=== PATIENT | female | born 2000 | race Caucasian/White ===

== ENCOUNTER 2021-02-17 09:00 | Outpatient (RCR) | payer OTHER, MEDICAID, SELFPAY ==
--- NOTE | 2021-02-17 08:56 | BH.SGPN.GN ---
Behaviors/Verbalizations/Mental Status: []Eye contact is poor, often looking down or away. Alert and oriented. Motor activity is appropriate. Appearance is neat casual. grooming is appropriate. Speech unable to assess as client declined to provide input. Mood is anxious and depressed. Affect is congruent. No evidence of psychosis or hallucinations. Reports SI as a 4/5 however baseline unknown as client new to IOP program, intent reported as 2/5. Willing to meet individually to complete [place] Suicide risk assessment and further assess. Client Response/Progress/Benefit: []Pt new to IOP tx on this date. Opted not to share during process group; however, appeared to connect with others throughout. Nodding at various points. Client appearing to benefit from supportive group environment. Recommended ongoing IOP tx to improve self-talk, continue to promote anxiety management, and prevent decompensation. Narrative Note: []
--- NOTE | 2021-02-17 09:00 | BH.COMM_ITS ---
Communication Note - Communication with Client Communication Note: Met with patient to completed intial paperwork. No sig nificant changes since pre-admission screening. Completed [place] Suicide Screening. Last suicidal thought occured 2 days. Has some thoughts of methods. Protective factors. Long-standing fleeting SI and desire to be . Does not present as imminent danger. Protective factors. Future-oriented.
--- NOTE | 2021-02-17 10:10 | BH.SGPN.GN ---
Behaviors/Verbalizations/Mental Status: []Alert and oriented. Eye contact is good. Motor activity is appropriate. Appearance is neat. Speech is Appropriate. Mood is depressed. Affect is constricted. Thoughts are linear and logical. No evidence of psychosis. Client Response/Progress/Benefit: []Pt was an active participant in group discussion and activity although she appeared anxious. Connected with quote.? Attentive during psychoeducation.? Pt worked with group to identify forces that can impact growth and overall mental health. Pt was doing a lot of nodding during the garden metaphor and how different forces work together to get growth. Participated in the activity and did well working as a team.? Pt benefited from increased awareness of the impact positive and negative forces can have on mental health and personal growth. First day of IOP. Will continue IOP tx to prevent decompensation, learn healthy coping skills, and improve daily functioning. Narrative Note: []
--- NOTE | 2021-02-17 11:20 | BH.SGPN.GN ---
Behaviors/Verbalizations/Mental Status: []Client alert and oriented, casually dressed and groomed. Eye contact fair. Motor activity appropriate. Speech WNL. Affect constricted, mood anxious and depressed. Thoughts linear, logical, no signs of hallucinations or delusions. Client Response/Progress/Benefit: []Pt engaged during session AEB pt providing input when elicited by therapist, completed worksheet and listened attentively to peers. Group processed the activity and identified positive and negative forces impacting ability to complete the challenge. Pt was attentive during psychoeducation and appeared to benefit from increased insight on the impact of negative and positive forces on mental wellness. Identified positive forces as: boundaries, journaling, and using support system. Identified negative forces: people pleasing, negative self-talk, negative body image, and unhealthy coping. Identified wanting to focus on communicating to support what she needs. Pt's first day in IOP. Recommended continued IOP tx to increase healthy coping skills, improve self-awareness, and prevent decompensation. Narrative Note: []
--- NOTE | 2021-02-18 10:15 | BH.NA_ITS ---
Physical Data - Vital Signs Pulse Rate: 84 Blood Pressure: 127/83 - Height/Weight Height: 1.63 m Weight:: 58.967 kg Weight in Pounds: 130.0 lbs Current Medication Compliance - Medication Compliance Do you take your medication as prescribed?: Yes Nutritional History - Appetite Nutritional Instructions:: If client shows signs of a swallowing problem, weight change of 10 pounds or more in the last month, or is on a diabetic diet, the physician will review and request a dietitian consult, as appropriate. All unintentional weight loss will be referred to the physician for decision on need for dietitian consult. Have you noticed a change in your eating habits lately?: Yes Additional nutritional information:: Client states she has lost 35lbs in the last year. Client states she has seen a strategic sourcing specialist in the past and is seeing one again for decreased appetite and eating habits. Functional Assessment - Sleep Pattern Describe any problems with sleeping: Client states she has had problems sleeping since being taken off her Trazodone. Client states she sleeps about 5 hours per night. - Activities Motor Activity:: Functional Sensory/Communication Assess - Vision Problems Do you have any vision problems?: Glasses - Communication Problems Do you have difficulty understanding what people are saying?: No Medical Problems/History - Gastrointestinal Conditions Gastrointestinal: Other (See comments) Comments:: history of eosinophilic esophagitits, IBS - Pain Assessment Do you have acute or chronic pain?: No Surgical History - Surgical History Have you had any surgeries? If so, list type and date:: Yes - right hip Substance Abuse - Substance Abuse Please describe substance abuse in the last 30 days:: Client denies alcohol, tobacco or substance use. Client occasionally drinks caffiene. Mental Status Summary - Mental Status Significant Findings/Observations on Appearance and Mood:: Client is alert and oriented x4. Client is casually groomed with good hygiene. Client is wearing a mask due to the pandemic. Client is cooperative. Client makes fair eye contact. Client's voice with normal rate and somewhat soft volume. Client has somewhat flat affect. Client makes logical associations. Client denies delusions/hallucinations. Client has longstanding chronic SI. Suicide Assessment - Suicidal Ideation Are you currently or have you been suicidal in the past?: Yes - chronic daily SI Suicidal Intentional Rating Scale (SIRS): Suicidal thoughts (past) Physician Notification: If Active suicidal thoughts/Will not contract for safety is checked, contact physician and document in the Physician Notification section below. Past Psychiatric History - MH Treatment Hx Past Psychiatric Medications:: Trintellix, Lexapro, Wellbutrin, Trazodone, Prozac, Prasozin Age of first mental health symptoms: Client states she was diagnosed with anxiety and depression when she was around 16 years old. Describe (age, circumstance, etc) any past hospitalizations: Client has had 3 hospitalizations, the most recent in January 2019 for SA by overdose. Current providers for mental health treatment (counselor, psychiatrist, returned case inspector, etc.): [facility]- counseling, case resolution specialist, and highway traffic control technician Fall Risk Assessment - Age Age: Less than 60 - Mental Status Mental Status: Willing & able to ask for assistance when needed - Physical Status Physical Status: No problems - Impairments Impairments: None - Elimination Elimination: Continent AND independent - Gait or Balance Gait or Balance: Walks independently - Hx of Falls History of falls in the past 6 months: No known history - Medications/Substances Psychotropics:: Antidepressants Medications/substances used within the past 24 hours or ordered to administer: 1-2 of the medications/substances listed above - Total Score Total Points:: 1 RN Summary of Impressions - Impressions Recommendations: Include psychiatric and medical issues, treatment planning recommendations, and discharge planning needs. Impressions: Psychiatric Issues: Major depressive disorder, recurrent, severe without psychosis; generalized anxiety disorder; cluster B traits - Level of Care How do the client's current symptoms and functional deficits support need for this level of care?: Client was referred to IOP by outpatient highway traffic control technician for fleeting SI. Client states she has had an increase in depression symptoms and suicidal thoughts and once a week outpatient therapy was not enough. Client endorses decreased energy, decreased motivation, anhedonia, and avoidance. Clien t endorses frequent self-harm by cutting. Client states she last cut 2 days ago but denies any open areas/wounds on skin from cutting. Client has a history of chronic SI, and client states recently it has gotten more severe. No recent suicide attempts or hospitalizations. IOP will promote gains and prevent further decompensation while providing social support and skills training.
--- NOTE | 2021-02-18 11:10 | BH.SGPN.GN ---
Behaviors/Verbalizations/Mental Status: []Client alert and oriented, casually dressed, hygiene appeared to be tended to. Eye contact good. Motor activity appropriate. Speech within normal limits. Affect constricted, mood anxious. Thoughts linear, logical, no signs of hallucinations or delusions. Client Response/Progress/Benefit: []Client engaged participant AEB client providing input during discussions and listened attentively to peers. Participated in group discussion on the various areas of self-care, benefits, and types of self-care activities for each area. Client completed worksheet in which client identified current self-care practices and what self-care activities client wants to start using. Client reported she will focus on improving emotional self-care as client believes this will help client learn healthy coping skills. Client stated she will do this by looking up positive affirmations. Appeared to benefit from reflecting on the area of self-care client can improve and setting a small goal. First week of IOP tx. Will continue IOP tx to prevent decompensation, combat distortions, and improve daily functioning. Narrative Note: []
[2021-02-18 11:27] VITALS: BP 127/83; PULSE 84
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
--- NOTE | 2021-02-18 12:49 | BH.PSY.EVA_ITS ---
Initial Treatment Plan - Patient Information Visit Information: ADMISSION DATE: EXPECTED LOS: 4-6 weeks - Problems/Symptoms Problem #1:: Depression Symptom:: Sadness, crying, hopelessness, worthlessness, suicidal ideation, biol ogical disruption of appetite and sleep, decreased concentration and low energy. Problem #2:: Anxiety Symptom:: Worry, rumination, avoidance
--- NOTE | 2021-02-20 07:35 | BH.MTP ---
Master Treatment Plan - Patient Information Program Physician:: Dr. Karma Wilson Primary Therapist:: Emilee GUAMAN - Psychiatric Diagnoses Psychiatric Diagnoses:: Major depressive disorder, recurrent, severe without psychosis; generalized anxiety disorder; cluster B traits Diagnosis Code(s):: F 33.2 - Estimated LOS Estimated LOS (in weeks):: 6 Problem/Goal #1 - Problem/Goal #1 Stated Goal:: Client will reduce depressive symptoms, self-harm and SI, and worthlessness due major depressive disorder. Description of Barriers: Client has a history of two previous suicide attempts and she reports a history of self-harming behaviors. Client has a limited support system and states knowledge of few healthy coping skills. Client has history of past trauma and negative thought patterns that reinforce depression. Functional Impact: Client is a 20-year-old female with a history of MDD and JUANITA. Client has history of three previous hospitalizations with the most recent being 01/2019. Client was referred to [facility] tx by her outpatient psychiatric nursing assistant due to worsening suicidal ideations and limited benefit from traditional counseling. Client has a long-standing history of SI with thoughts of methods. Denies any current plan or intent. Client endorses poor sleep, poor appetite, low energy, low motivation, hopelessness, anhedonia, rumination, worry, and avoidant behaviors. Client also uses cutting to cope with mental health symptoms and stressors. Client's symptoms have been impacting her ability to function at home, socially, and at school. Goal Relevant Strengths/Supports: Client is established with outpatient services through [facility]. Client appears to be open to learning healthy coping skills and improving her mental health. - Objectives Objective #1 Stated Objective: Client will learn and utilize 2-3 healthy coping strategies to better manage depressive symptoms as shown by reduced DSM-5 scores. Interventions: Through group and individual sessions, therapist will help client identify triggers and warning signs of depression. Therapist will teach client various coping skills to manage her symptoms and give client tangible resources to use to regulate emotions. Therapist will provide psychoeducation on cognitive distortions and maintenance cycles and strategies to break unhealthy maintenance cycles. Discharge Criteria: Client will have met this goal when she can report learning and using at least 2 coping skills to manage depressive symptoms and show a reduction in DSM-5 symptoms. Target Date: 03/31/21 Review Date: 03/17/21 Status: open Objective #2 Stated Objective: Client will identify 2 triggers and 2 coping skills to use when client experiences mood dysregulation and has increased urges to engage in unhealthy coping skills. Interventions: Through individual and group counseling client will be provided with education on healthy coping skills to manage mood symptoms, impulse, and crisis behaviors. Therapist will provide information on healthy alternatives to emotion release. Therapist will also engage client to use self-compassion while working to change behaviors. Discharge Criteria: Client will have accomplished this goal when client can identify at least 2 triggers and 2 coping skills to increase mood stability and reduce unhealthy action urges. Target Date: 03/31/21 Review Date: 03/17/21 Status: open Problem/Goal #2 - Problem/Goal #2 Stated Goal:: Client will reduce anxiety symptoms while increasing ability to function on daily basis. Description of Barriers: Client has a history of two previous suicide attempts and she reports a history of self-harming behaviors. Client has a limited support system and states knowledge of few healthy coping skills. Client has history of past trauma and negative thought patterns that reinforce depression. Functional Impact: Client is a 20-year-old female with a history of MDD and JUANITA. Client has history of three previous hospitalizations with the most recent being 01/2019. Client was referred to [facility] tx by her outpatient psychiatric nursing assistant due to worsening suicidal ideations and limited benefit from traditional counseling. Client has a long-standing history of SI with thoughts of methods. Denies any current plan or intent. Client endorses poor sleep, poor appetite, low energy, low motivation, hopelessness, anhedonia, rumination, worry, and avoidant behaviors. Client also uses cutting to cope with mental health symptoms and stressors. Client's symptoms have been impacting her ability to function at home, socially, and at school. Goal Relevant Strengths/Supports: Client is established with outpatient services through [facility]. Client appears to be open to learning healthy coping skills and improving her mental health. - Objectives Objective #1 Stated Objective: Client will identify 2-3 cognitive distortions that lead to rumination and learn 2-3 ways to manage these thoughts to better manage anxiety Interventions: Therapist will provide education on the most common cognitive distortions and teach client the connection between thoughts, emotions, and feelings. Therapist will assist client in identifying, challenging, and replacing dysfunctional thoughts with positive, more realistic thoughts. Therapist will use CBT and DBT techniques to help client gain awareness of thinking errors and learn how to more effectively handle negative thoughts. Therapist will also use self-compassion to help client set more realistic expectations for herself. Discharge Criteria: Client will have accomplished this goal when can identify at least 2 cognitive distortions and at least 2 coping skills to manage negative thoughts. Target Date: 03/31/21 Review Date: 03/17/21 Status: open Objective #2 Stated Objective: Client will identify 2-3 anxiety triggers and 2 coping skills to use when feeling anxious to manage anxiety as shown by decreasing her avoidance behaviors and DSM-5 scores for anxiety. Interventions: Therapist will provide education on anxiety, avoidance behaviors, and maintenance cycles. Therapist will help client explore personal symptoms and warning signs of anxiety. Therapist will teach client coping skills to improve emotional regulation, mindfulness, and distress tolerance to help client cope with anxiety in the moment. Discharge Criteria: Client will have accomplished this goal when she can identify at least 2 triggers and report using 2 coping skills to manage anxiety. Additionally, client will have accomplished this goal when her avoidance behaviors and DSM-5 scores show a reducion. Target Date: 03/31/21 Review Date: 03/17/21 Status: open
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
--- NOTE | 2021-02-20 09:00 | BH.SGPN.GN ---
Behaviors/Verbalizations/Mental Status: []Client alert and oriented, casually dressed. Eye contact fair. Motor activity appropriate. Speech within normal limits. Affect flat, mood anxious and dysthymic. Thoughts linear, logical, no signs of hallucinations or delusions. Reviewed client?s symptom tracker, client scored herself as a 4-5 for suicidal ideation and a 2-3 for suicide plan or intent. Client will meet with a therapist to assess safety planning. Client Response/Progress/Benefit: []Client responded well to session, engaged throughout and participated in group discussion. Client reported feeling ?hopeless? this morning. Client denied having any specific goals for IOP as of now, but reported her stressor as school and family dysfunction. Client reported her older sister has cancer and has been speaking negative to client. Client stated ?I am never doing enough? and stated attending IOP still does not receive recognition from family. Client shared wanting to develop healthy boundaries with her sister by limiting communication. Benefited from group as client related to peers about their experiences within boundary settings in families.Client shared her positive as being present in IOP. Progress noted as client was vulnerable to discuss personal struggles in group setting. Will continue IOP to promote the use of healthy coping skills, prevent decompensation, and set healthy boundaries with older sister. Narrative Note: []
--- NOTE | 2021-02-20 10:10 | BH.SGPN.GN ---
Behaviors/Verbalizations/Mental Status: []Client alert and oriented, casually dressed and groomed. Eye contact fair to good. Motor activity appropriate. Speech within normal limits. Affect congruent, mood depressed and anxious. Thoughts linear, logical, no signs of hallucinations or delusions. Client Response/Progress/Benefit: []Client was an engaged participant AEB taking notes and contributing to discussion. Connected with group topic of perspective and the impacts of one?s perspective on mental health. Client noted struggling with societal stigma and learned beliefs impacting her perspective of self. Client worked with the group to identify how a negative perspective can impact mental health which included: self-fulfilling prophecy, avoiding or giving up on treatment, not opening up to others, and withdrawing or isolating. Client reported starting to discover that her mental health experiences can make her more empathetic to others struggling with similar issues. Client appeared to benefit from increasing understanding of mental health benefits of a positive perspective and potential consequences to progress when perspective is negative. Progress noted in improved engagement in tx environment. Continues to struggle with combating distortions and suicidal ideation. Client will continue IOP tx to promote gains, maintain safety, improve healthy coping, and prevent decompensation. Narrative Note: []
--- NOTE | 2021-02-20 11:10 | BH.SGPN.GN ---
Behaviors/Verbalizations/Mental Status: []Eye contact is good. Alert and oriented. Motor activity is appropriate. Appearance is casual. grooming is appropriate. Speech is Appropriate. Mood is dysthymic. Affect is constricted. Thoughts are linear and logical. No evidence of psychosis or hallucinations. Client Response/Progress/Benefit: []Pt engaged participant AEB pt providing input throughout session, listening attentively to peers and completing strengths exploration handout. Pt did struggle to identify strengths and client recognizes that she tends to be her ?own worst critic.? Pt shared some of the strengths she identified were flexibility, empathy, and assertiveness. Pt stated these strengths will help client?s mental health recovery by helping client be open-minded, promoting connection, and asking for help. Pt seemed to benefit from increased awareness of personal strengths and improved understanding how perspective can impact view of self. Pt is to continue IOP tx to prevent decompensation, reduce SI, and learn healthy coping skills. Narrative Note: []
--- NOTE | 2021-02-20 14:21 | BH.MDN ---
Multi-Disciplinary Note - Note 60-min Individual Time Started:: 12:10 Date: 02/20/21 Purpose of session/treatment goals addressed:: Session to assess risk and develop safety plan for the weekend Eye Contact:: Good Motor Activity:: Appropriate Appearance:: Casual Speech:: Appropriate Mood:: Euthymic Affect:: Full Thoughts:: Linear, Logical, No evidence of hallucinations/delusions noted Staff Interventions:: safety planning. Worked with pt to identify affirmations, thought-reframing skills, self-care, and healthy distractions to uilize over the weekend. Client Response:: In filling out pt's daily symptom tracker she haD noted a 4/5 for the presence of suicidal thougts or not wanting to be in existence and a 2/5 for intent to act on thoughts. We had discussed her long-standing suicidal thoughts on 02/16/21 and completed [facility]. She decribed daily symptom tracker numbers as being her baseline (her scores from 02/16,02/17, and today have been consistent with above numbers). She describes her thoughts are more passive (I feel like things would be better off if I wasn't around, I'm not good enough,). Thoughts about dying or not being alive. Active suicidal thoughts occur in context of situational events (arguments). She had an arguement with her sister last evening as her sister keeps telling her that she should be working more than 8 hours a week. Frequent conflict with sister which led pt to think that she isn't doing enough and is worthless. Last evening she thought this and had suicidal thoughts. Admits that when this happens she thinks about methods (OD) however did not have any intent or plan. No gestures and was able to cope and control thoughts eventually going to sleep. Reports thoughts are more passive and less severe today however arguement with sister still wieghs on her. Group today was helpful. Denies active SI, plan, or intent. Future-oriented (school, future career). Protective factors are (family/friends). Contracts for safety. She had talked with her rehabilitation case coordinator yesterday after the arguement. No access to guns. Medications are locked up with mother. We completed a safety plan in which she identifed internal coping skills, affirmations, and distraction techniques to utiize if SI occurs this weekend. Wrote down support to talk with (Alie) and gave crisis numbers to call or text. Agreed to attempt internal skills and if needed reach out to support. In the event these are not effective will call or text crisis. She was smiling and engaged in conversation. Affect was euthymic often laughing and presented in good spirits. Motivated about IOP. Struggles to identify coping skills despite being in counseling for several years. Aside from arguement with sister no other psychosocial stressors. Reports arguements are common and her sister will often text apologizing. Risks/Concerns:: Refer above. Does not present as imminent danger to herself due to no active SI, plan, or intent. Long-standing suicidal thoughts with methods per her report. Verbalizes that she is able to keep herself safe. Safety plan completed. No access to guns. Mother has been managing her medication for 4 weeks. Future-oriented. Protective factors. Notes that her daily symptoms scores are her baseline. No evidence to require involuntary admission at this point. Progress Toward Goals/Plan:: Limited progress however this is pt's first week in IOP. Notes that she is enjoying group and was more engaged and talkative today. Long-standing SI, depression, and anxiety per pt report. Plan is to continue in IOP to maintain safety, increase healthy coping, and improve functioning. Time Stopped:: 13:00
--- NOTE | 2021-02-24 09:10 | BH.SGPN.GN ---
Behaviors/Verbalizations/Mental Status: [] Eye contact is good. Motor activity is appropriate. Appearance is neat. Speech is Appropriate. Mood is anxious. Affect is congruent. Thoughts are linear and logical. No evidence of psychosis. Reviewed daily check in sheet and pt reports 3/5 for suicidal thoughts and 1/5 for intent. This is improved from last week's scores. Client Response/Progress/Benefit: [] Pt participated when prompted. Attentive. Pt has a very short check-in. States that noticed improved mood over the weekend mainly because she stayed away from her mother. Could not elaborate on this further. Remarked that her mother's mood and anger can negatively impact pt. Reports that yesterday her Depression worsened due to stress of the starting the week. Could not identify any positives. Emotion for today is exhausted. Benefited from group support, encouragement, and feedback. No progress noted. Will continue in IOP to maintain safety, increase healthy coping, and to improve functioning. Narrative Note: []
--- NOTE | 2021-02-24 11:04 | BH.SGPN.GN ---
Behaviors/Verbalizations/Mental Status: []Client alert and oriented, casually dressed and groomed. Eye contact good. Motor activity appropriate. Speech within normal limits. Affect constricted, mood dysthymic. Thoughts linear, logical, no signs of hallucinations or delusions. Client Response/Progress/Benefit: []client receptive to session, listening attentively to others and providing input. Actively listening and taking notes as the group brainstormed the positive and negative aspects of stress on physical and mental health. Group worked together to define stress and provided input during discussion about eustress vs distress. Client identified personal stressors which included: others? expectations, sister?s health, past trauma, unhealthy coping skills, and depression. Client reports belief that her stress jar is overflowing which can result in client losing motivation. Seemed to benefit from increased awareness of current stressors and impact of too much stress on the mind and body. Will continue IOP tx to prevent decompensation, improve mood stability, and learn healthy coping skills. Narrative Note: []
--- NOTE | 2021-02-24 13:33 | BH.MDN ---
Multi-Disciplinary Note - Note 30-min Individual Time Started:: 11:40 Date: 02/24/21 Purpose of session/treatment goals addressed:: The purpose of this session was to gather information on client's current stressors, symptoms, and treatment goals. Another goal was to build rapport and provide psychoeducation. Eye Contact:: Good Motor Activity:: Appropriate Appearance:: Casual Speech:: Appropriate Mood:: Dysthymic Affect:: Congruent Thoughts:: Linear, Logical, No evidence of hallucinations/delusions noted Staff Interventions:: Therapist used active listening and open-ended questions to explore client's current stressors, symptoms, history, and treatment goals. Therapist used strengths perspective to build rapport. Therapist provided brief psychoeducation on maintenance cycles and depression. Therapist assessed risk and client reports ability to maintain safety. Client Response:: Client responded well to session, open to meeting with therapist. Client shared she has been in therapy before and has found having a safe space to talk and process her emotions to be helpful. Client shared about her life and stated that currently her biggest stressors are her relationship with family, negative thinking, and past trauma. Client connected a lot with all or nothing thinking and shared she often has thoughts that I'm never going to get better. Client reports limited support and shared her siblings are much older, so they have a complicated relationship. Client stated she does not know a lot of coping skills and would like to gain skills while in IOP. Client receptive to psychoeducation on maintenance cycles for depression and was willing to further explore her own maintenance cycle for homework. Risks/Concerns:: Client denies any active suicidal ideations, plan, or intent as of 02/24/21. Client does endorse chronic passive suicidal ideations, but denies she would act on these thoughts. Client shared they're just always there and reports they have decreased since last week. Client is future oriented. Progress Toward Goals/Plan:: Client is engaging well in IOP tx AEB her consistent attendance. Client is on her second week of IOP tx, so no significant changes noted. Client continues to endorse depressive symptoms, low motivation, negative thinking, anhedonia, isolative behaviors, sleep issues, lack of energy, and chronic SI. Client would like to work on becoming less codependent with her mother, learn about past trauma, learn coping skills, and become an active member in my own life. Client will continue IOP tx to prevent decompensation, maintain safety, and learn healthy coping skills. Time Stopped:: 12:15
--- NOTE | 2021-02-25 09:02 | BH.SGPN.GN ---
Behaviors/Verbalizations/Mental Status: []Client alert and oriented, neatly dressed and groomed. Eye contact good. Motor activity appropriate. Speech within normal limits. Affect constricted, mood dysthymic. Thoughts linear, logical, no signs of hallucinations or delusions. Reviewed client?s symptom tracker. Client was a 3/5 for thoughts of suicide and 1/5 for risk for suicide. Client denies any active SI and reports ability to maintain safety today. Client Response/Progress/Benefit: []Client responded well to session, receptive to feedback from peers. Client reports feeling heavy this morning due to ongoing issues with sleep. Client reports feeling like a zombie due to poor sleep for the past several days. Client shared she had a rough night last night after client tried to reach out to her sister and got a negative response. Client reports that she struggles with all or nothing thinking, so when she has a conflict client becomes hopeless. Client receptive to feedback from peers on how to cope with depression instead of isolating. Client liked the idea of going for a walk when she is feeling depressed. Client's positives today were that she did homework from her individual session and she made it to IOP today. Appeared to benefit from gaining coping skill ideas. Progress noted in client's consistent attendance. Will continue IOP tx to prevent decompensation, maintain safety, and improve emotional regulation skills. Narrative Note: []
--- NOTE | 2021-02-25 10:11 | BH.SGPN.GN ---
Behaviors/Verbalizations/Mental Status: [] Client alert and oriented, casually dressed and groomed. Eye contact good. Motor activity appropriate. Speech within normal limits. Affect congruent, mood depressed and anxious. Thoughts linear, logical, no signs of hallucinations or delusions Client Response/Progress/Benefit: [] Client engaged in session AEB client providing increased input, taking notes, and listening attentively to peers. Client shared connecting with the importance of setting boundaries, noting that ?boundaries are essential to taking care of ourselves?. Client assisted group with identifying barriers to setting healthy boundaries. These included: fear of abandonment, unhealthy habits, difficulties setting boundaries with self, ?what if? thoughts, and not knowing how. Shared a personal barrier she has experienced in the past is struggling with her own mental health sx. Listened as participants provided examples and noted struggling with boundaries when it comes to her family members. Client seemed to benefit from increased awareness of how boundaries impact mental health. Will continue IOP tx to improve use of healthy coping, improve consistent thought challenge skills, maintain safety, and reduce mental health sx. Narrative Note: []
--- NOTE | 2021-02-25 11:20 | BH.SGPN.GN ---
Behaviors/Verbalizations/Mental Status: []Client alert and oriented, casual dress, hygiene appropriate. Eye contact fair. Motor activity appropriate. Speech within normal limits. Affect constricted, mood dysthymic. Thoughts linear, logical, no signs of hallucinations or delusions. Client Response/Progress/Benefit: []Client responded well to session, connecting with peers and receptive to supportive statements. Client engaged in the boundary self-assessment activity and attentive during psychoeducation on the different boundary styles. Client reported she most often has porous boundaries because she has a fear of rejection so doesn't like to say no. Pt states being porous results in her becoming burnt out. From self-assessment she realizes she has extreme difficulty with feeling the need to hold up her supports and unable to step away from relationships that take more than give. Able to identify negative consequences of these beliefs. Client participated in brainstorming strategies to improve boundary setting. Seemed to benefit from increased awareness of how current boundary style impacts mental health and learning different strategies to improve boundary style. Client to continue IOP tx to continue use of healthy coping, improve self-confidence and prevent decompensation.
--- NOTE | 2021-02-25 11:22 | BH.COMM_ITS ---
Communication Note - Communication with Client Communication Note: Client reports she has been sleeping about 4-5 hours per night, and reports that sleep continues to worsen in the last week. Discussed with client and discussed with Dr. Paez. Client was on Trazodone for a number of years but had several dose increases over the years and states her doctor told her she was almost maxed out on it. Client agrees to try Doxepin at HS to help with sleep, same will be called in to [facility] per verbal order.
--- NOTE | 2021-02-26 09:04 | BH.SGPN.GN ---
Behaviors/Verbalizations/Mental Status: []Eye contact is good. Alert and oriented. Motor activity is appropriate. Appearance is neat and casual. grooming is appropriate. Speech is Appropriate. Mood is anxious and depressed. Affect is congruent. Thoughts are linear and logical. No evidence of psychosis or hallucinations. SI reported as a 2/5 which is below baseline, denies plan, or intent as of this date. Client Response/Progress/Benefit: []Pt engaged in session AEB listening to others and willingness to share thoughts and feelings with group. Pt noted feeling ?heavy? on this date, noting this is due to struggling with negative thoughts and depressive sx the previous night. Receptive of and appeared to benefit from supportive feedback provided by group. Pt did well to identify current wins which included: practicing self-care via taking a bath, using positive self-talk, and reaching out to supports when struggling the previous date. Noted normally she would have jumped straight to self-harming behaviors and although she still engaged in self-harming, she did try alternative means of coping first which is progress. Continues to struggle with significant distortions reinforcing negative self-esteem and maintaining depression. Client mental health continues to be primary stressor. She did identify plans to engage in self-care throughout the day to help reduce negative thoughts and emotions at the end of the day. Recommended continued IOP tx to improve thought challenge skills and self-care, continue to promote healthy change behaviors, maintain safety, and prevent decompensation. Narrative Note: []
--- NOTE | 2021-02-26 10:15 | BH.SGPN.GN ---
Behaviors/Verbalizations/Mental Status: []Client alert and oriented, causally dressed and groomed. Eye contact good. Motor activity appropriate. Speech within normal limits. Affect constricted, mood depressed. Thoughts linear, logical, no signs of hallucinations or delusions. Client Response/Progress/Benefit: []Client passive participant AEB client not providing input, however did appear to listen attentively to others. Group gave examples of unhealthy coping skills. Listened as group identified the following as reasons unhealthy skills are used: instant gratification, easy, escape reality, survival, feels good, learned behavior and habitual. Client participated in the group activity and connected that a healthy foundation of coping skills is composed of healthy internal and external coping skills. Client seemed to benefit from increased awareness of the importance of increasing healthy coping skills and consequences of utilizing unhealthy coping skills. Progress limited AEB pt continuing to report depressive symptoms and difficulty managing negative thoughts. Will continue IOP tx to prevent decompensation, continue use of healthy coping, and challenge distorted thoughts. Narrative Note: []
--- NOTE | 2021-02-26 11:15 | BH.SGPN.GN ---
Behaviors/Verbalizations/Mental Status: []Client alert and oriented, casually dressed and groomed. Eye contact good. Motor activity appropriate. Speech within normal limits, quiet. Affect constricted, mood anxious and depressed. Thoughts linear, logical, no signs of hallucinations or delusions Client Response/Progress/Benefit: []Client responded well to session, taking notes and contributing. Group discussed the different categories of coping skills which included distraction, emotional release, grounding, self-love, and thought challenging. Client participated in creating a coping skills ?menu? from the five categories of coping skills. Client's coping skill menu included: talking to support, journaling, deep breathing, affirmations, and sticky notes with positive thoughts. Client reported she is building up her coping skills, so most of these are new to client. Appeared to benefit from increasing repertoire of healthy coping skills. Will continue tx to prevent decompensation, reduce chronic SI, and increase emotional regulation. Narrative Note: []
--- NOTE | 2021-03-03 09:00 | BH.SGPN.GN ---
Behaviors/Verbalizations/Mental Status: []Client alert and oriented, neatly dressed and groomed. Eye contact good. Motor activity appropriate. Speech within normal limits. Affect constricted, mood euthymic. Thoughts linear, logical, no signs of hallucinations or delusions. Reviewed client?s symptom tracker, no risk for suicidal ideation, plan, or intent as of 03/03/21 Client Response/Progress/Benefit: C[] Client responded well to session, attentive and engaged. Client reports feeling exhausted and optimistic this morning. Client stated that sleep has still been rough for her, but her anxiety has reduced which is positive. Client reports I haven't been feeling my emotions as intensely. Client contributes this positive change to her application of coping skills and increased self-awareness. Client reports using opposite action, self-care, self-compassion, and talking more with supports. Client stated she also feels better because the semester is over and she had a good conversation with her father over the weekend. Appeared to benefit from reflecting on her progress. Will continue IOP tx to promote gains, further decrease negative self-talk, and improve daily functioning. Narrative Note: []
--- NOTE | 2021-03-03 10:10 | BH.SGPN.GN ---
Behaviors/Verbalizations/Mental Status: [] Eye contact is good. Motor activity is appropriate. Appearance is disheveled. Speech is Appropriate. Mood is anxious. Affect is congruent. Thoughts are linear and logical. No evidence of psychosis. Client Response/Progress/Benefit: [] Pt participated at times during group discussion. Active participant in group activity. Attentive as peers provided insight on the benefits to goal-setting as well as the barriers to setting and obtaining goals. Attentive during psychoeducation on SMART (Specific, Measurable, Achievable, Realistic, Timely)goals. Did well in activity with peers and was able to relate the activity to goal setting for herself. Benefited from increase insight into effective ways to set goals. Will continue in IOP to maintain safety, increase healthy coping, and prevent decompensation. Narrative Note: []
--- NOTE | 2021-03-03 13:36 | BH.MDN_ITS ---
Multi-Disciplinary Note - Note 30-min Individual Time Started:: 11:40 Date: 03/03/21 Purpose of session/treatment goals addressed:: To work on goal #1 of client's tx plan. Eye Contact:: Good Motor Activity:: Appropriate Appearance:: Neat Speech:: Appropriate Mood:: Euthymic Affect:: Congruent Thoughts:: Linear, Logical, No evidence of hallucinations/delusions noted Staff Interventions:: Therapist used active listening and provided positive encouragement as client has been implementing healthy coping skills. Provided psychoeducation on the different types of distortions and helped client identify personal examples. Gave client a handout on 20 questions to ask yourself to challenge negative thoughts. Helped client create a goal to increase affirmations and recognition of positives. Client Response:: Client responded well to session, open to meeting with therapist. Client shared she feels better today and that she had a good weekend. Numerous positives including gaining support from her father, using coping skills, no SI, and the spring ending. Client shared gaining insight about her maintenance cycles for depression was helpful as it allowed client to catch herself and make changes. Client reported using opposite action and self- care this weekend. Client willing to learn about the most common cognitive distortions. Client connected most with all or nothing thinking, minimization, and personalization. Client reports she tends to have all or nothing thoughts about herself, school, and progress. Client shared the example of if I have a setback I tell myself I've made no progress. Client reports she often minimizes her symptoms and feels like she learned this from her family. Client stated she personalizes the most with her mother as the two of them have a codependent relationship. Reviewed the 20 questions to challenge negative thinking worksheet. Client will write out her wins each day in her journal and use these wins to create affirmations. Risks/Concerns:: Client reports an improved mood today and denies any suicidal ideations, plan, or intent as of 03/03/21. Future oriented and optimistic. Progress Toward Goals/Plan:: Client is making progress AEB her report of applying healthy coping skills, no SI, and an improved mood over the weekend. Client continues to report issues with sleep despite recent medication change. Although her mood is improved today, client continues to struggle with managing her depression, negative thinking, and chronic SI. Client will continue IOP tx to promote mood stability, improve daily functioning, and increase healthy coping skills. Time Stopped:: 12:07
--- NOTE | 2021-03-04 09:00 | BH.SGPN.GN ---
Behaviors/Verbalizations/Mental Status: []Eye contact is good. Alert and oriented. Motor activity is appropriate. Appearance is casual. grooming is appropriate. Speech is Appropriate. Mood is euthymic. Affect is congruent. Thoughts are linear and logical. No evidence of psychosis or hallucinations. SI reported as below baseline, denies plan, or intent as of this date. Client Response/Progress/Benefit: []Pt engaged in session AEB listening to others and willingness to share thoughts and feelings with group. Pt noted feeling ?calm? on this date. Expressed this is due to improved ability to challenge and reframe negative thoughts which has aided in reducing overall depression levels. Client did well to identify current wins which included: being able to practice being more present in her day to day life, as well as improved regular mental health check-ins which she attributes to being able to refrain from self-harming for the past 6 days. Client discussed current stressor as an upcoming family get together and noted that these are always stressful. Did well to identify coping skills she can use to manage her stress levels throughout. Appeared to benefit from supportive group environment. Recommended ongoing IOP tx to improve coping skills and mood management, and prevent decompensation. Narrative Note: []
--- NOTE | 2021-03-04 10:08 | BH.SGPN.GN ---
Behaviors/Verbalizations/Mental Status: []Client alert and oriented, neatly dressed and groomed. Eye contact good. Motor activity appropriate. Speech within normal limits. Affect constricted, mood anxious. Thoughts linear, logical, no signs of hallucinations or delusions. Client Response/Progress/Benefit: []Client engaged throughout session AEB providing input when prompted. Appeared to connect with discussion on crisis and how unhealthy coping could result in a personal crisis. Group reflected on the importance of having awareness of personal warning signs in order to prevent reaching crisis point. Group identified potential warning signs for crisis and client completed the personal warning signs worksheet. Client identified personal crisis warning signs to include: racing thoughts, eating less than usual, and increased apathy. Client reports that she has been using ?a lot of opposite action? which has helped her avoid depressive relapses. Client benefited from increasing awareness of what leads to crisis and personal warning signs. Client will continue IOP tx to reinforce healthy coping skills, improve daily functioning, and further reduce depression. Narrative Note: []
--- NOTE | 2021-03-04 11:08 | BH.SGPN.GN ---
Behaviors/Verbalizations/Mental Status: []Client alert and oriented, neatly dressed and groomed. Eye contact good. Motor activity appropriate. Speech within normal limits. Affect constricted, mood euthymic. Thoughts linear, logical, no signs of hallucinations or delusions Client Response/Progress/Benefit: []Client responded well to session as evidenced by client listening attentively to others and providing ideas for coping skills throughout session. Client identified warning signs for crisis and gained further awareness of earliest warning signs. Client used the warning signs: eating less than usual, apathy, and racing thoughts to create personal crisis plan. Client?s action plan included: planning/preparing meals, thought challenging, opposite action, meditation, writing down wins, and affirmations. Client plans to keep her crisis plan in her bedroom and share it with her mother. Client appeared to benefit from creating a crisis action plan and increasing self-awareness. Client will continue IOP tx to further improve ability to cope with stressors/triggers, reduce negative self-talk, and increase emotional regulation skills. Narrative Note: []
--- NOTE | 2021-03-04 12:33 | PCM.BH.PN ---
Progress Note Progress Note: History of Present Illness/Interim History: [] The patient is a 20-year-old single female who is seen in follow-up at the [facility] behavioral health IOP program. I last saw the patient 2 weeks ago and at that time Wellbutrin XL and doxepin were added to her medication regimen. The patient states that her mood is much better since starting these medications and she has less suicidal ideation. She still has some passive suicidal ideation that occurs 2-3 times a week. Her sleep has not improved with the doxepin and she is still sleeping only 5 hours per night. She admits to cutting 6 days ago but none no cutting since. This was superficial cut. She has a history of cutting when ages 16 and 17 and then restarted several 3 months ago. She denies hopelessness and worthlessness. She is having less crying spells. She denies suicidal ideation that is active and denies any plan for suicide. She denies homicidal ideation, hallucinations, or delusions. Current Psychiatric Medications: [] Luvox 150 mg p.o. daily (x6 weeks or x10 weeks); Wellbutrin XL 150 mg p.o. every morning (x2 weeks); doxepin 10 mg p.o. nightly (x2 weeks). Mental Status Examination: [] Patient is a 20-year-old female who is seen wearing a mask due to the pandemic and is casually dressed and groomed with good hygiene. She has good eye contact and her speech is normal rate and. Mood is mildly depressed. Affect is full and normal. Thought process is goal-directed and organized. Thought content: There is evidence of chronic, passive suicidal ideation which occurs 2-3 times a week. There is no evidence of active suicidal ideation, plan for suicide, homicidal ideation, hallucinations or delusions. Judgment is limited but improving. Insight is limited but improving. Impulsivity is moderate. Diagnoses: [] [place] I: [] Major depressive disorder, recurrent, severe without psychosis; generalized anxiety disorder [place] II: [] Cluster B traits [place] III: [] Rule out irritable bowel syndrome [place] IV:[]] Primary support issues Plan: [] The patient will continue the IOP program at [facility] as the structure, support, education, individual and group therapy will hopefully prevent worsening of the patient's symptoms which might require hospitalization. The patient felt safe during the interview and if it anytime she does not feel safe she will let us know or go to the emergency room. The risks, options, possible complications and side effects of the medications were again discussed with the patient and she understands and accepts these. The patient agrees to discontinue doxepin. A prescription was sent in for trazodone as the patient says that in years past trazodone has helped her sleep. Prescription was sent in for trazodone 100 mg, 1 p.o. nightly. Prescription was also sent in for refill of her Wellbutrin XL 150 mg p.o. every morning. No other medication changes were made today. She will continue to follow-up with outpatient psychiatric and medical providers. I will see the patient in follow-up in 1 to 2 weeks.
--- NOTE | 2021-03-04 14:12 | BH.COMM ---
Communication Note - Communication with Client Communication Note: Trazodone 100mg oral daily at bedtime, 30 pills, 0 refills called in to [facility] in [place] at this time per order of Dr. Paez.
--- NOTE | 2021-03-06 09:00 | BH.SGPN.GN ---
Behaviors/Verbalizations/Mental Status: []Client alert and oriented, casually dressed. Eye contact fair. Motor activity appropriate. Speech within normal limits. Affect constricted, mood anxious. Thoughts linear, logical, no signs of hallucinations or delusions. Reviewed client?s symptom tracker, no risk or thoughts of suicide ideation, plan, or intent as of 03/06/21. Client Response/Progress/Benefit: []Client responded well to session, engaged throughout and participated in group discussion. Client reported feeling ?exhausted? this morning due to a medication change and adjustment. Client reported working towards her goal of writing down personal wins as well as affirmations. Reported her personal win as school semester ending and recognizing it has been 8-9 days since self-harming. Client reported her stressor as seeing her family this weekend. Benefited from group as peers connected with client and offered positive suggestions for when client feel anxious like breathing, focusing on positives, and changing environment. Client identified journaling, reading, practicing self-care, and cleaning as healthy coping skills. Will continue IOP to promote the use of healthy coping skills, challenge negative thinking, and prevent decompensation. Narrative Note: []
--- NOTE | 2021-03-06 10:05 | BH.SGPN.GN ---
Behaviors/Verbalizations/Mental Status: []Client alert and oriented, casually dressed and appropriately groomed. Eye contact good. Motor activity appropriate. Speech within normal limits. Affect congruent, mood dysthymic and anxious, Thoughts linear, logical, no signs of hallucinations or delusions. Client Response/Progress/Benefit: []Client receptive of session, providing input and taking notes throughout. Client agreed with the quote and shared how communicating can be an illusion when we shut down and assume the other person knows why. Group identified potential barriers to healthy communication as: anxiety, fear of other?s reactions, making assumptions, shutting down, and fear of being vulnerable. Noted a personal communication barrier as shutting down, expressing that this has led to feeling her needs are not being heard as a result. Client remained attentive and contributed during psychoeducation on the four communication styles, providing input throughout. Benefited from increased insight regarding own communication style and impacts this has on overall mental health. Client will continue IOP to promote the use of healthy coping skills, improve self-care and mood management, and challenge negative thoughts. Narrative Note: []
--- NOTE | 2021-03-06 11:10 | BH.SGPN.GN ---
Behaviors/Verbalizations/Mental Status: []Client alert and oriented, casually dressed and groomed. Eye contact fair. Motor activity appropriate. Speech within normal limits. Affect constricted, mood dysthymic. Thoughts linear, logical, no signs of hallucinations or delusions. Client Response/Progress/Benefit: []Client engaged participant AEB her attentiveness during discussion and listened to peers. Client reported she is mostly a passive communicator. Client reported this communication style causes negative consequences on her relationships and mental health. Client stated by being passive her needs do not get met because she doesn't express what she needs. Attentive during psychoeducation about DEAR MAN (Describe, Express, Assert, Reinforce, Mindfulness, Appear confident, Negotiate) interpersonal communication skill. Client identified her communication goal is to focus on the skill of assertiveness with her mom by expressing her thoughts and feelings. Client seemed to benefit from increased insight into how her communication style impacts her mental health and relationships. Client progressing as shown by her report of reduced depression. Will continue IOP tx to maintain gains, continue setting healthy boundaries and prevent decompensation.
--- NOTE | 2021-03-09 09:00 | BH.SGPN.GN ---
Behaviors/Verbalizations/Mental Status: []Client alert and oriented, casually dressed. Eye contact fair. Motor activity appropriate. Speech within normal limits. Affect congruent, mood anxious. Thoughts linear, logical, no signs of hallucinations or delusions. Reviewed client?s symptom tracker, no risk or thoughts of suicide ideation, plan, or intent as of 03/09/21. Client Response/Progress/Benefit: []Client responded well to session, engaged throughout and participated in group discussion. Client reported feeling ?gloomy? this morning. Client reported working towards her goal of journaling and practicing affirmations daily. Client also reported another goal of being more assertive in communication with her mother. Over the weekend, client spent time with family and when conflict took place, client practiced healthy coping skills. Client identified healthy coping skills as reading, breathing, regulating emotions, advocated for herself, and putting her phone down. Progress noted as client used opposite action to advocate for her needs in uncomfortable situations. Appeared to benefit from group as client connected with peers and related to other?s stressors. Client will continue IOP to set healthy boundaries, promote the use of healthy coping skills, and challenge negative thoughts. Narrative Note: []
--- NOTE | 2021-03-09 10:05 | BH.SGPN.GN ---
Behaviors/Verbalizations/Mental Status: []Client alert and oriented, casually dressed and groomed. Eye contact good. Motor activity appropriate. Speech within normal limits. Affect congruent, mood anxious and dysthymic. Thoughts linear, logical, no signs of hallucinations or delusions. Client Response/Progress/Benefit: []Client was an engaged participant AEB taking notes and contributing some to discussion, though continues to take a mostly passive role. Connected with group topic of perspective and the impacts of one?s perspective on mental health. Client noted that her perspective has become more empathetic towards others struggling with their mental health since experiencing her own mental health issues. Client worked with the group to identify what factors influence our perspective which included: upbringing, stress, environment, society, our mental health, supports, and past experiences. Noted that past experiences has impacted her perspective in some situations. Receptive of psychoeducation provided on the mental health impacts of one?s perspective and ways we develop our perspective. Continues to struggle with combating distortions, negative self-talk, healthy coping on a consistent basis. Client will continue IOP tx to promote gains, continue to improve self-talk and healthy coping, and prevent decompensation. Narrative Note: []
--- NOTE | 2021-03-09 11:10 | BH.SGPN.GN ---
Behaviors/Verbalizations/Mental Status: []Client alert and oriented, casually dressed and groomed. Eye contact fair to good. Motor activity appropriate. Speech within normal limits. Affect congruent, mood euthymic. Thoughts linear, logical, no signs of hallucinations or delusions. Client Response/Progress/Benefit: []Pt responded well to session AEB pt providing input to session, completing worksheet, and listening attentively to peers. Pt identified personal strength of honesty has helped her express her emotions better versus telling others I'm fine. Pt stated personal strength of empathy is beneficial because she is able to provide support to others, but not take ownership of others problems. Pt reported strength of open communication has improved relationship with her mom. Identified 3 positive affirmations pt will say to self daily. Pt to continue IOP to maintain gains, continue to challenge distorted thoughts and prevent decompensation. Narrative Note: []
--- NOTE | 2021-03-11 09:05 | BH.SGPN.GN ---
Behaviors/Verbalizations/Mental Status: [] Eye contact is good. Motor activity is appropriate. Appearance is casual. Speech is Appropriate. Mood is depressed. Affect is flat. Thoughts are linear and logical. No evidence of psychosis. Reviewed daily check in sheet and pt reports 1/5 for suicidal thoughts and 0/5 for intent. Client Response/Progress/Benefit: [] Pt participated when prompted. Attentive. Emotion for today is anxious and overwhelmed. Not able to identify any mental health wins. Unable to identify any triggers to worsening mood. She attributes some to spending more time with her mother. States that her semester is over and she currently is not working so I shouldn't be overwhelmed. Group pointed out that change in routine and lack of responsibilities can often times cause anxiety. Pt did not elaborate much else during her check-in. Limited progress per pt. Benefited from group support and feedback. Will continue in IOP to maintain safety, increase healthy coping, and prevent decompensation. Narrative Note: []
--- NOTE | 2021-03-11 10:00 | BH.SGPN.GN ---
Behaviors/Verbalizations/Mental Status: [] Eye contact is good. Motor activity is appropriate. Appearance is casual. Speech is Appropriate. Mood is depressed. Affect is flat. Thoughts are linear and logical. No evidence of psychosis Client Response/Progress/Benefit: [] Pt was an active participant in group discussion and activity. Attentive during psychoeducation. Along with peers was able to identify barriers to taking action on her mental health which included; fear of failure, the unknown, change, one's environment, past negative experiences, being passive, and fear of vulnerability. Identified several symptoms and stressors that she feels are holding her back from progress such as toxic environment, what ifs, and comparing self to others.. Benefited from increased self-awareness of obstacles. Will continue in IOP to maintain safety and increase healthy coping. Narrative Note: []
--- NOTE | 2021-03-11 11:07 | BH.SGPN.GN ---
Behaviors/Verbalizations/Mental Status: []Client alert and oriented, neatly dressed and groomed. Eye contact good. Motor activity appropriate. Speech within normal limits. Affect constricted, mood mildly dysthymic. Thoughts linear, logical, no signs of hallucinations or delusions. Client Response/Progress/Benefit: []Client responded well to session, taking notes and participating in worksheet discussion. Client connected with the zones of action/change and reported that making sustainable change comes from stepping out of one?s comfort zone and into the learning zone. However, group discussed how even the learning zone can have cons such as short-term increased anxiety. Client set a goal to gain control over people pleasing. Client wants to be able to say no to toxic people without having to explain herself at least once a week. Client believes she will need support from ?non-toxic family? and her friends to accomplish this goal. Appeared to benefit from identifying a small goal to benefit mental health. Will continue IOP tx to promote mood stability, continue to challenge negative thoughts, and increase healthy coping skills. Narrative Note: []
--- NOTE | 2021-03-11 14:11 | BH.MDN ---
Multi-Disciplinary Note - Note 45-min Individual Time Started:: 12:00 Date: 03/11/21 Purpose of session/treatment goals addressed:: To work on goal #1 of client's tx plan. Eye Contact:: Good Motor Activity:: Appropriate Appearance:: Neat Speech:: Appropriate Mood:: Dysthymic Affect:: Congruent Thoughts:: Linear, Logical, No evidence of hallucinations/delusions noted Staff Interventions:: Therapist used strengths perspective to empower client on her progress and application of coping skills. Therapist used cognitive restructuring to help client combat distortions reinforcing depression. Therapist assisted client in reframing negative thoughts and had client write out more realistic statements. Therapist explored self-care barriers and helped client set self-care goals for the week. Client Response:: Client responded well to session, open to meeting with therapist. Client reports today she feels less positive and more depressed than she has for a few days. Client had been making significant progress and now shares I'm kind of disappointed in myself and worry I'll just go back to old patterns. Client able to recognize these thoughts as distortions and willing to challenge these. Client first reflected on all her progress since starting IOP tx which included no self-harm in almost two weeks, feeling less overwhelmed by emotions, and practicing helping coping skills daily. Client completed a thought log and when she was finished, client wrote her positive statements on notecards. Client also shared she has not been taking baths or reading affirmations over the past few days, which had been helping. Client set an alarm in her phone to remind herself to practice self-care. Client reports feeling better after session and presented as less anxious about relapsing. Risks/Concerns:: Client denies any active suicidal ideations, plan, or intent as of 03/11/21. Future oriented and motivated. Progress Toward Goals/Plan:: Client continues to demonstrate progress towards tx goals AEB her ongoing report of no self-harm, reduced SI, and application of coping skills. Client is reporting some warning signs of depression today and fears she is returning to old patterns. Client did well to challenge thoughts and create a game plan in session. Continues to endorse symptoms such as ruminations, urges to self-harm, and mild depression. Will continue IOP tx to prevent decompensation, improve mood stability, and promote gains. Time Stopped:: 12:40
--- NOTE | 2021-03-13 09:02 | BH.SGPN.GN ---
Behaviors/Verbalizations/Mental Status: []Client alert and oriented, neatly dressed and groomed. Eye contact good. Motor activity appropriate. Speech within normal limits. Affect constricted, mood dysthymic. Thoughts linear, logical, no signs of hallucinations or delusions. Reviewed client?s symptom tracker, no risk for suicidal ideation, plan, or intent as of 03/13/21. Client Response/Progress/Benefit: C[]Client responded well to session, receptive to feedback and engaged. Client reports feeling heavy this morning as client has not had a lot of time by herself over the past week. Client shared she has been social, but being too social negatively impact client's mental health. Client reported she should be getting more alone time soon and client plants to use this time for deliberate self-care. Client received feedback from peers on setting boundaries with family to promote self-care. Client states she has been using thought challenging and opposite action to manage her emotions. Progress noted in client's application of thought challenging, but client may continue to struggle if client cannot begin setting healthier boundaries with family. Will continue IOP tx to promote mood stability and increase healthy boundaries. Narrative Note: []
--- NOTE | 2021-03-13 10:00 | BH.SGPN.GN ---
Behaviors/Verbalizations/Mental Status: [] Eye contact is good. Motor activity is appropriate. Appearance is casual. Speech is Appropriate. Mood is depressed. Affect is flat. Thoughts are linear and logical. No evidence of psychosis Client Response/Progress/Benefit: [] Pt participated at times during group discussion. Active during group activity. Attentive during psychoeducation on fear and the impact that fear of failure can have. Pt and peers provided insight on thoughts that contribute to fear of failure such as; I'm not good enough, I won't succeed, I know I can't/couldn't do it, Why try ... I will fail, and I could have done that better. Pt and peers were able to identify the benefits to failure in an attempt to reframe. Group identified that failure can be a way to; learn what to do differently, increase resiliency, increase self-compassion, and problem-solve. Pt benefited from psychoeducation on the impact of fear of failure and changing perspective on how to view setbacks. Pt will continue in IOP to maintain safety, increase healthy coping, and improve functioning. Narrative Note: []
--- NOTE | 2021-03-13 11:08 | BH.SGPN.GN ---
Behaviors/Verbalizations/Mental Status: []Client alert and oriented, casually dressed and groomed. Eye contact good. Motor activity WNL. Speech within normal limits. Affect congruent, mood anxious and dysthymic. Thoughts linear, logical, no signs of hallucinations or delusions. Client Response/Progress/Benefit: []Client responded well to session, engaged and actively participating throughout. Client completed the fear of failure worksheet and reported that fear of failure has kept client from getting help with her mental health and setting boundaries in the past. Client able to identify barriers that reinforce personal fear of failure which included: toxic environment, high expectations of self, negative self-talk, and focusing on past failures. Client attentive during discussion of the different strategies to help overcome fear of failure. Identified personal strategies to include: focusing on why she?s working towards goals, asking for help, creating a plan, and challenging herself to be more flexible. Client appeared to benefit from learning ways to overcome fear of failure. Will continue IOP tx to continue to promote application of healthy coping skills, continue to improve self-talk, improve healthy boundary setting, and maintain stability. Narrative Note: []
== END 2021-03-13 23:59 ==
LOC: BHIOP 09:00
PROVIDERS: PCP Family Medicine; Referring Provider Psychiatry & Neurology Psychiatry; Visit Provider Psychiatry & Neurology Psychiatry
DX: F33.2 Major depressive disorder, recurrent severe without psychotic features (principal); F41.1 Generalized anxiety disorder; Z79.899 Other long term (current) drug therapy
CPT/HCPCS: H0035; 90832; 90834; 90837; 90853

== ENCOUNTER 2021-03-16 09:00 | Outpatient (RCR) | payer OTHER, MEDICAID, SELFPAY ==
[2021-03-14 00:53] VITALS: BP 127/83; PULSE 84
--- NOTE | 2021-03-16 09:03 | BH.SGPN.GN ---
Behaviors/Verbalizations/Mental Status: []Eye contact is good. Motor activity is appropriate. Appearance is casual. Speech is Appropriate. Mood is dysthymic. Affect is congruent. Thoughts are linear and logical. No evidence of psychosis. Reviewed daily check in sheet and pt denies any active SI, plan, or intent as of this date, 03/16/21 Client Response/Progress/Benefit: []Pt was an active participant in group discussion, willing to share with group and provided supportive feedback to fellow participants. Reports emotion for today is ?mentally exhausted?. Client shared that this is due to having family over all last week which limited her self-care time. Discussed struggling to set boundaries with her family to ensure that she prioritizes her mental health needs. Receptive of supportive feedback and suggestions provided by group. Reports needing to proactively communicate self-care needs with her mom this week as they have another busy weekend planned. Identified that she can additionally take time to read and journal this week so she feels less stressed going into the weekend. Self-identified some regression as pt reports not practicing self-care skills over past week and is feeling more depressed as a result. Benefited from group support, feedback, and encouragement. Will continue in IOP to maintain gains, further improve boundaries and application of self-care, and prevent decompensation. Narrative Note: []
--- NOTE | 2021-03-16 10:08 | BH.SGPN.GN ---
Behaviors/Verbalizations/Mental Status: []Client alert and oriented, neatly dressed and groomed. Eye contact good. Motor activity appropriate. Speech within normal limits. Affect congruent, mood dysthymic. Thoughts linear, logical, no signs of hallucinations or delusions. Client Response/Progress/Benefit: []Pt responded well to session AEB contributing to discussion. Pt connected with quote about how being flexible can improve resilience. Pt stated coming to IOP and learning coping skills helped pt be resilient. Pt worked with the group during discussion of the costs of resisting change and the benefits of adapting to adversity. Group identified costs of resisting change included: staying stuck, poor functioning, increased depression, increased anxiety, and increased negative self-talk. Attentive during psychoeducation on various stratton factors in developing personal resilience. Pt contributed during group discussion identifying benefits of each factor in fostering resilience. Pt seemed to benefit from increasing awareness of strategies to increase personal resilience and the impacts of resilience on managing mental health sx. Will continue IOP tx to promote gains, further increase healthy boundaries, and improve confidence. Narrative Note: []
--- NOTE | 2021-03-16 11:08 | BH.SGPN.GN ---
Behaviors/Verbalizations/Mental Status: []Client alert and oriented, neatly dressed and groomed. Eye contact good. Motor activity appropriate. Speech within normal limits. Affect congruent, mood anxious. Thoughts linear, logical, no signs of hallucinations or delusions. Client Response/Progress/Benefit: []Client responded well to session, engaged and participated throughout discussion. Client participated in the discussion of how each resiliency component can help increase personal resiliency. Client worked with group to identify ways to practice each of the resiliency traits reviewed. Provided personal examples. Client shared belief she has resilience traits such as maintaining a hopeful outlook and keeping things in perspective. Client would like to work the resiliency trait of making connections and will do this by increasing healthy communication with supportive family. Will continue IOP tx to promote gains, further combat distortions, and increase mood stability. Narrative Note: []
--- NOTE | 2021-03-16 11:45 | BH.MDN_ITS ---
Multi-Disciplinary Note - Note 45-min Individual Time Started:: 12:10 Date: 03/16/21 Purpose of session/treatment goals addressed:: To work on goal #2 of client's tx plan by completing a decisional balance exercise and setting small goals. Another goal was to challenge distortions. Eye Contact:: Good Motor Activity:: Appropriate Appearance:: Neat Speech:: Appropriate Mood:: Anxious Affect:: Congruent Thoughts:: Linear, Logical, No evidence of hallucinations/delusions noted Staff Interventions:: Therapist used active listening and encouraged client to use self-compassion to combat distortions. Therapist helped client process current stressors and used a decisional balance exercise to increase client's self-awareness on the impacts of boundary setting. Therapist discussed opposite action, overcoming avoidance, and strategies to increase self-confidence. Client Response:: Client responded well to session, open to meeting with therapist. Client stated the previous weekend was stressful as client did not get a lot of self-care time. Client is worried that she will decompensate because this coming weekend client will be busy, again, with family. Client's family is an ongoing trigger for client's mood instability and negative self- talk. Client stated I go to these things and isolate because I'm not included and then I'm in a bad mood the whole time. Discussed solutions to help client feel more in control and manage her emotions better while with family. One suggestion was that client drive separately to the family event so client could leave on her own and get self-care time. Client recognized this as a good idea, however, client was anxious to set the boundary. Client expressed worries of what if I upset my sister, what if I get pressured, and what if my anxiety is too high. Client expressed several cognitive distortions that reinforce client's avoidance to setting boundaries. Client completed the decisional balance exercise and gained awareness that although setting a boundary would increase anxiety short-term, it will improve client's mental health short-term and long-term. Client's goal is to verbalize this boundary with her family before the end of the week and to increase self-care in the evenings. Risks/Concerns:: Client denies any active suicidal ideations, plan, or intent as of 03/16/21. Client has been feeling a little more depressed lately and admits to some fleeting thoughts of , but no active SI. Progress Toward Goals/Plan:: Client admits to some regression in symptoms over the past week due to family stress and self-reported lack of self-care. Client continues to have good attendance and is an active group member. Client often minimizes her mental health wins, as client is still functioning better and has not self-harmed which is progress. Client continues to endorse low energy, negative self-talk, avoidance, and lack of motivation. Client will continue IOP tx to prevent further decompensation and increase the use of healthy coping skills. Time Stopped:: 12:55
--- NOTE | 2021-03-16 11:45 | BH.MTP_ITS ---
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 Client's depression has decreased by 50%, anxiety by 71%, and SI by 75% per DSM-5 assessment since IOP admission. Additionally, client has not self-harmed in over two weeks. Client is more quiet than peers, but will occasionally share during group session. Client is consistent with coping skill application and is engaged in both group and individual sessions. Client's attendance is consistent and she is medication compliant. Status of Current Problems and Symptoms: Client continues to report mild to moderate symptoms of depression which have slightly increased over the last week. Client's depressive symptoms are still reduced compared to admission to [facility]. Client continues to report limited support and family conflict that impacts client's mental health. Client's SI has decreased significantly, but she still occasionally (less than one day a week) gets fleeting thoughts of self-harm and passive SI. Problem #1 Problem Name:: Depression, SI Status of Goals:: Objective 1- complete with ongoing work encouraged. Client?s DSM-5 scores for depression have decreased by 50% and SI has decreased by 75%. Client has been using opposite action, self-care, and reading to cope with depression. Ongoing work encouraged as client reports this week she has felt down and depressed more than half the days. This is likely due to family stressors. Objective 2- complete with ongoing work encouraged. Client has refrained from cutting for over two weeks now using self-soothing coping skills and opposite action. Client's family tends to be a trigger and client will be with family most of the weekend, so continuing to work on this goal will be beneficial. Team Recommendations:: Treatment team recommends that client continue working on boundary setting with family, challenging negative self-talk, and increasing self-advocacy. Also recommended to work on self-assurance. Problem #2 Problem Name:: Anxiety, rumination Status of Goals:: Objective 1- partially complete. Client has learned about cognitive distortions and with help can combat negative thoughts. Client can continue to improve on challenging negative, anxious thoughts without external support. Objective 2- complete with ongoing work encouraged. Client?s anxiety has decreased by 71% since admission. Client has been using opposite action and self-care to manage anxiety. Client is currently working on boundary setting and self-advocacy with family, which could temporarily spike anxiety. Team Recommendations:: Treatment team recommends client to increase participation in group to practice sitting with the uncomfortable.
--- NOTE | 2021-03-18 09:00 | BH.SGPN.GN ---
Behaviors/Verbalizations/Mental Status: [] Eye contact is good. Motor activity is appropriate. Appearance is casual. Speech is Appropriate. Mood is anxious. Affect is flat. Thoughts are linear and logical. No evidence of psychosis. Reviewed daily check in sheet and patient reports 2/5 for suicidal ideations and 0/5 for intent. This is baseline for patient. Client Response/Progress/Benefit: [] Pt participated when prompted. Attentive. Did not provide any feedback to peers. Emotion for today is depressed. Mental health win was engaging support in conversation regarding boundaries which has been an obstacle for her. She shared that she felt that her support was dismissive during the conversation stating what do you want from me. This week is also the anniversary of a triggering event which she did not elaborate on. Feels somewhat disconnected and angry. Overall she reports that he weekend went well. No significant depressive episodes. Progress noted per pt report. Benefited from group support, encouragement, and feedback. Will continue in IOP to maintain safety, stabilize mood, and increase healthy coping. Narrative Note: []
--- NOTE | 2021-03-18 10:05 | BH.SGPN.GN ---
Behaviors/Verbalizations/Mental Status: []Eye contact is good. Motor activity is appropriate. Appearance is casual. Speech is Appropriate. Mood is anxious, dysthymic. Affect is congruent. Thoughts are linear and logical. No evidence of psychosis. Client Response/Progress/Benefit: []Pt was an active participant in group discussions and group activity. Attentive and provided input during discussion on benefits and examples of healthily social supports. Group noted benefits of strong social supports as: feel less alone, hold us accountable, provide different perspective, encouragement, and help us through providing a skill or insight we might not have. Client agreed that using our support system can be difficult, engaged in discussion on barriers to using support system. Identified a personal barrier to using her supports as not communicating and feeling that some of her supports can be toxic to her mental health. Able to see the impact of support and its benefits during activity and challenges of accomplishing tasks w/o proper support. Noted connecting with insight that not setting boundaries with toxic supports can negatively impact willingness to reach out for support from positive supports in the future. Benefited from awareness of barriers to support as well as importance of support in mental health wellness. Narrative Note: []
--- NOTE | 2021-03-18 11:07 | BH.SGPN.GN ---
Behaviors/Verbalizations/Mental Status: []Client alert and oriented, neatly dressed and groomed. Eye contact fair. Motor activity appropriate. Speech within normal limits. Affect constricted, mood dysthymic. Thoughts linear, logical, no signs of hallucinations or delusions. Client Response/Progress/Benefit: []Client an active participant throughout AEB contributing to discussion, taking notes, and providing supportive feedback. Client participated in the group activity highlighting the various barriers to effectively utilizing supports and strategies the group used. Client participated in discussion of the four types of support (emotion, tangible, informational, and social) and the group listed examples for all types. Client reports wanting to work on increasing emotions support from her family and friends. Client stated this will help client feel seen/heard, give her an outlet, and feel less alone. Client plans to do this by reflecting on her emotional support needs and taking inventory of the types of support she currently has. Client seemed to benefit from identifying the type of support client wants to improve. Will continue IOP tx to reduce negative thinking that reinforces symptoms and to increase emotional regulation skills. Narrative Note: []
--- NOTE | 2021-03-20 09:00 | BH.SGPN.GN ---
Behaviors/Verbalizations/Mental Status: [] Eye contact is good. Motor activity is appropriate. Appearance is casual. Speech is Appropriate. Mood is depressed. Affect is flat. Thoughts are linear and logical. No evidence of psychosis. Reviewed daily check in sheet and no reports of suicidal ideations or intent. Client Response/Progress/Benefit: [] Pt participated when prompted. Attentive during the video on ways to help with sleep. Attentive. Shared that she is feeling Defeated and anxious today. Shared with the group that she had self-harmed yesterday. Feels like this is a set-back and a failure for this. Group was helpful and provided feedback on the event not indicating she was a failure that progress in MH is not linear. Reframed that event could be used as a way to learn. Pt was receptive to feedback and stated that trigger was most likely upcoming stressors and an anniversary. Limited progress since last session per pt report. Benefited from group feedback. Will continue in IOP to maintain safety, prevent decompensation, and increase healty coping. Narrative Note: []
--- NOTE | 2021-03-20 10:11 | BH.SGPN.GN ---
Behaviors/Verbalizations/Mental Status: Client alert and oriented, neat and casually dressed and groomed. Eye contact fair to good. Motor activity appropriate. Speech within normal limits. Affect congruent, mood depressed. Thoughts linear, logical, no signs of hallucinations or delusions. [] Client Response/Progress/Benefit: []Client engaged in session, contributing some to discussion and taking notes throughout. Client identified distorted thinking and negative perspective as things that keep people stuck from solving problems and improving their mental health. Client participated in the discussion of problem-solving examples and the barriers that come with this. Client shared she has struggled with shutting down, negative self-talk, and letting past setbacks prevent her from effectively problem solving in the past. Contributed to group discussion on the benefits of effective problem-solving on mental health, sharing improved willingness to keep trying when faced with setbacks in the future as a potential benefit. Client worked with peers to brainstorm the components of A,B,C,D,E problem solving method. Client seemed to benefit from learning problem solving methods and identifying potential barriers to effective problem-solving. Continues to struggle with symptoms of depression, poor boundaries, and negative thinking which impact ability to maintain consistent mood stability. Will continue IOP tx to prevent decompensation, promote continued skill implementation, and improve sx management. Narrative Note: []
--- NOTE | 2021-03-20 11:12 | BH.SGPN.GN ---
Behaviors/Verbalizations/Mental Status: []Eye contact is fair to good. Motor activity is appropriate. Appearance is casual, neat. Speech is Appropriate. Mood is depressed. Affect is constricted. Thoughts are linear and logical. No evidence of psychosis. Client Response/Progress/Benefit: []Pt responded well to session as evidenced by contributing and during challenge activity, listening to peers, and contributing more thoughts to session than in prior group. Pt stated the problem she wants to work on addressing is not wanting to allow herself to be vulnerable. Pt identified skills she can utilize to work on this problem include: use more positive affirmations, thinking more about what she wants to say rather than just saying ?I?m fine?, and opposite action. Discussed that working to solve this problem will aid in getting more from treatment as well as feel empowering. Pt seemed to benefit from identifying strategies to problem solve through a problem currently impacting mental health. Recommended continues IOP tx to further improve consistent healthy coping and self-care, reduce distorted thinking patterns, increase boundary setting, and improve mental health stability. Narrative Note: []
--- NOTE | 2021-03-25 09:00 | BH.SGPN.GN ---
Behaviors/Verbalizations/Mental Status: [] Eye contact is good. Motor activity is appropriate. Appearance is casual. Speech is Appropriate. Mood is depressed. Affect is flat. Thoughts are linear and logical. No evidence of psychosis. Reviewed daily check in sheet and no reports of suicidal ideations or intent. Client Response/Progress/Benefit: [] Pt participated when prompted. Attentive. Emotion for today is hopeful. Mental health win was that this weekend was better than I had expected. She had a very stressful gathering this past weekend. 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 Summer classes start today which she is at this point excited about. However that could change. She is utilized skills and reframing negative thoughts which has been beneficial. Progress noted per pt report. Benefited from group support, encouragement, and feedback. Will continue in IOP to maintain gains and increase healthy coping on consistent basis. Narrative Note: []
--- NOTE | 2021-03-25 10:10 | BH.SGPN.GN ---
Behaviors/Verbalizations/Mental Status: []Client alert and oriented, casually dressed and groomed. Eye contact good. Motor activity appropriate. Speech within normal limits. Affect constricted, mood slightly dysthymic. Thoughts linear, logical, no signs of hallucinations or delusions. Client Response/Progress/Benefit: []Client engaged participant AEB listening to peers and providing to discussion. Client commented on the quote as well as unhealthy coping skills. Client stated using unhealthy coping skills ?creates more problems.? Client gave examples of unhealthy coping skills such as: avoiding, isolating, and self-harm. Group shared that people tend to use unhealthy coping skills because they are easier and provide quick relief. Client participated in the group activity and connected that a healthy foundation of coping skills is composed of healthy internal and external coping skills. Client seemed to benefit from increased awareness of the importance of increasing healthy coping skills and consequences of utilizing unhealthy coping skills. Will continue IOP tx to further improve mood stability, combat distortions, and further improve functioning. Narrative Note: []
--- NOTE | 2021-03-25 11:12 | BH.SGPN.GN ---
Behaviors/Verbalizations/Mental Status: [] Client alert and oriented, casually dressed and groomed. Eye contact good. Motor activity appropriate. Speech within normal limits. Affect congruent, mood euthymic. Thoughts linear, logical, no signs of hallucinations or delusions Client Response/Progress/Benefit: []Client responded well to session, taking notes and contributing throughout. Appearing more actively engaged and displaying a brighter affect than in prior groups this week. Group discussed the different categories of coping skills which included distraction, emotional release, grounding, self-love, and thought challenging. Client participated in creating a coping skills ?menu? from the five categories of coping skills. Client's coping skill menu included: reading, venting to supports, square breathing, showering, and maintaining a thought log. Client has been using regular self-care skills and reading but wants to get better at challenging negative self-talk and using more self-compassionate language. Appeared to benefit from increasing repertoire of healthy coping skills. Will continue tx to further improve daily functioning, increase consistency of skill application, and further improve mental health sx management. Narrative Note: []
--- NOTE | 2021-03-26 09:00 | BH.SGPN.GN ---
Behaviors/Verbalizations/Mental Status: []client alert and oriented, neatly dressed and groomed. Eye contact good. Motor activity appropriate. Speech within normal limits. Affect constricted, mood euthymic and tired. Thoughts linear, logical, no signs of hallucinations or delusions. Reviewed client's symptom tracker, no SI, plan, or intent as of 03/26/21. Client Response/Progress/Benefit: C[] Client responded well to session, attentive and receptive to gentle thought challenging. Client reports feeling drained this morning as client has been doing a lot of social things lately. Client recognizes these are positive, but client also needs alone time to recharge her battery. Client stated the weekend went better than expected which was a win as client was anxious about a family function. Client stated school has been going well and she has been working on setting boundaries. Client shared she is slacking with using her coping skills, but after further exploring, it appears client is not giving herself enough credit. Appeared to benefit from practicing thought challenging in the moment. Progress noted in client's reduced SI and boundary setting. Will continue IOP tx to promote gains and further improve daily functioning. Narrative Note: []
--- NOTE | 2021-03-26 10:10 | BH.SGPN.GN ---
Behaviors/Verbalizations/Mental Status: [] Eye contact is good. Motor activity is appropriate. Appearance is casual. Speech is Appropriate. Mood is anxious. Affect is congruent. Thoughts are linear and logical. No evidence of psychosis. Client Response/Progress/Benefit: [] Pt participated at times during group discussion however mainly when prompted. She did participate in group activity. Attentive during psychoeducation. Pt along with peers were able to identify common emotions (both positive and negative) associated with change. Group was able to identify the benefits to making changes such as; personal growth, increased self-esteem, improve mindset, decrease stress, improve emotional health, increase healthy skills, and to get out of same old challenges. Pt and peers were also able to identify some obstacles to making changes which included; low motivation, lack of support, difficult to get out of comfort zone, fear of change, fear of the unknown, fear of repeating past, vulnerability, and asking for help. Pt benefited from group by increasing awareness of emotions and obstacles associated with making changes. Pt will continue in IOP to maintain gains and to increase healthy coping. Narrative Note: []
--- NOTE | 2021-03-26 13:42 | BH.MDN_ITS ---
Multi-Disciplinary Note - Note 30-min Individual Time Started:: 11:40 Date: 03/26/21 Purpose of session/treatment goals addressed:: To process current symptoms, pitfalls, and mental health wins. Another goal was to develop a daily routine to promote mood stability and self-care. Eye Contact:: Good Motor Activity:: Appropriate Appearance:: Casual Speech:: Appropriate Mood:: Dysthymic - mild Affect:: Congruent Thoughts:: Linear, Logical, No evidence of hallucinations/delusions noted Staff Interventions:: Therapist used active listening and provided emotional support as client discussed recent struggles. Therapist encouraged client to utilize self-compassion and thought challenging to reframe distortions. Therapist assisted client in creating a schedule to promote a more structured daily routine. Therapist gave client homework to finish her routine schedule and to practice self-reflection each day to promote mood stability. Client Response:: Client responded well to session, open to meeting with therapist. Client shared the past weekend went better than expected which client was pleased about. Client's goal last week was to set a boundary with her mother and sister by driving separately to a family event. Client was anxious about this, but followed through with the goal and reported it went well. Client shared although she is better than when she started IOP, client is noticing some pitfalls that could lead to decompensation. Client reported I've been slacking on self-care and coping skills. Client has started summer classes as well. Client receptive to the idea of creating a daily schedule to help client have a more structured routine. Client and therapist developed a schedule for several days in the week and client will finish the rest for homework. Client included a set time for self-care each day and client will also begin practicing self- reflection by asking herself each day what do I need and how am I doing. Discussed the benefits of opposite action when client wants to nap as well as th e benefit of incorporating new activities. Risks/Concerns:: Client denies any suicidal ideations, plan, or intent as of 03/26/21. Client had a relapse in cutting last week, but has not cut since. Client continues to be future oriented. Progress Toward Goals/Plan:: Client reports feeling drained today, but she recognizes she is still doing much better compared to admission to [facility]. Client admits to a relapse in cutting last week which client stated was triggered by a trauma anniversary and family stress. Client has not cut since and has been doi ng well with boundary setting. Client admits that her more depressed mood is likely due to client slacking with self-care and combating her thoughts. Client reports belief that developing a routine will help her. Will continue IOP tx to promote mood stability, increase self-care, and improve daily functioning. Time Stopped:: 12:10
--- NOTE | 2021-03-27 09:03 | BH.SGPN.GN ---
Behaviors/Verbalizations/Mental Status: []Pt eye contact good, casually dressed, motor activity appropriate, speech normal rate and tone, mood euthymic, congruent affect, thoughts linear and intact, no evidence of delusions or hallucinations. Patient indicated no suicidal ideation, plan or intent on daily symptom tracker. Client Response/Progress/Benefit: [] Patient receptive of session, engaged throughout AEB sharing thoughts and feelings with group. Identified emotion for the day as ?optimistic?, noting this is progress as she often shares feeling ?drained? or ?emotionally exhausted?. Patient went on to report she has been doing better to more consistently establish and maintain boundaries with her family, as well as practice regular self-care. Attributes this to improved mood and discussed feeling more capable of achieving a healthy balance between responsibilities and personal self-care. Reports that summer courses will be starting soon which is a stressor but a positive and motivating form of stress for her. Pt has made progress though continues to struggle with boundaries, emotion regulation, and negative self-talk which impact progress and reinforce depressive sx. Patient to continue IOP to promote healthy change behaviors, continue to improve sx management, and prevent decompensation. Narrative Note: []
--- NOTE | 2021-03-27 10:05 | BH.SGPN.GN ---
Behaviors/Verbalizations/Mental Status: [] Eye contact is good. Motor activity is appropriate. Appearance is casual. Speech is Appropriate. Mood is depressed. Affect is flat. Thoughts are linear and logical. No evidence of psychosis. Client Response/Progress/Benefit: [] Pt participated at times during group discussion. Participated in group activity. Attentive during psychoeducation. Kristofer pictures depicting her current and desired reality and shared with the group. Current reality involved her alone with leaves and debris falling all around her. She reports feeling limited control over her life. Her desired reality involved still struggling, however not being as overwhelmed and more in control. Identified that skills that would help move her from current to desired would be being more involved in making beneficial changes in her life. Benefited from group by increasing current awareness and expectations for progress. Will continue in IOP to maintain gains and healthy coping on consistent basis Narrative Note: []
--- NOTE | 2021-03-27 11:15 | BH.SGPN.GN ---
Behaviors/Verbalizations/Mental Status: []Client alert and oriented, casually dressed and groomed. Eye contact fair. Motor activity appropriate. Speech within normal limits. Affect congruent. Mood euthymic. Thoughts linear, logical, no signs of hallucinations or delusions. Client Response/Progress/Benefit: []Client engaged participant AEB pt providing input throughout discussion, engaged in activity and appeared to listen attentively to peers. Appeared to listen ideas on how to cope with internal barriers that keep clients stuck from moving towards goals. Client able to identify barriers to desired reality which includes: toxic people, unrealistic expectations, people pleasing, no motivation, and low self-esteem. Client stated she wants to focus on small daily goals to help overcome barrier of no motivation. Benefited from group by identifying obstacles and solutions to desired reality. Will continue IOP tx to continue use of healthy coping skills, improve self-esteem and prevent decompensation. Narrative Note: []
--- NOTE | 2021-03-30 09:00 | BH.SGPN.GN ---
Behaviors/Verbalizations/Mental Status: [] Eye contact is good. Motor activity is appropriate. Appearance is casual. Speech is Appropriate. Mood is depressed. Affect is flat. Thoughts are linear and logical. No evidence of psychosis. Reviewed daily check in sheet and no reports of suicidal ideations or intent. Client Response/Progress/Benefit: [] Pt participated when prompted. Attentive. Emotion for today is content. Her check-in was minimal and superficial however this is baseline for patient. Shared that she used opposite-action over the weekend and discussed how this was beneficial. She also shared some insight into how she managed and reacted to stressors last week. Able to learn from the events last week. Progress noted per pt report. Shared that she is going to be discharging from IOP later this week and the anxiety associated with this. Will continue in IOP to maintain gains. Narrative Note: []
--- NOTE | 2021-03-30 10:05 | BH.SGPN.GN ---
Behaviors/Verbalizations/Mental Status: []Client alert and oriented, neatly dressed and groomed. Eye contact good. Motor activity appropriate. Speech within normal limits. Affect congruent, mood euthymic. Thoughts linear, logical, no signs of hallucinations or delusions. Client Response/Progress/Benefit: []Pt was mostly a passive participant in group discussion, but took notes and provided some input. Connected with quote. Attentive during psychoeducation. Pt worked with group to identify forces that can impact growth and overall mental health. Pt was doing a lot of nodding during the metaphor and shared that setting boundaries is important to reduce negative thinking and remove toxic people. Group discussed examples of positive forces such as healthy coping skills and insight as well as negative forces such as distorted thoughts. Pt benefited from increased awareness of the impact positive and negative forces can have on mental health and personal growth. Will continue IOP tx to reinforce healthy coping skills and further improve mood stability. Narrative Note: []
--- NOTE | 2021-03-30 13:58 | BH.MDN_ITS ---
Multi-Disciplinary Note - Note 30-min Individual Time Started:: 11:05 Date: 03/30/21 Purpose of session/treatment goals addressed:: The purpose of this session was to review client's progress and review strategies that will promote mood stability and gains made in IOP. Another goal was to discuss discharge recommendations and process any current stressors. Eye Contact:: Good Motor Activity:: Appropriate Appearance:: Neat Speech:: Appropriate Mood:: Euthymic Affect:: Full Thoughts:: Linear, Logical, No evidence of hallucinations/delusions noted Staff Interventions:: Therapist used open-ended questions to explore client's thoughts on personal progress. Therapist also provided emotional support and helped client problem-solve current stressors. Therapist reviewed supports and coping skills with client to promote gains and prevent setbacks. Therapist discussed aftercare plan with client and used strengths-perspective to empower client on the goals client has accomplished. Therapist discussed the benefits of ongoing maintenance and use of daily coping skills. Therapist gave client a quote collage for closure. Client Response:: Client responded well to session, open to meeting with therapist. client shared that she used opposite action this weekend and spent time with friends which is positive. Client went on to explore the progress she has made while in IOP tx and shared that she recognizes progress in her thinking the most. Client stated belief she got better because I was open-minded and let this program work. Client reports she is able to challenge negative thinking more, boundaries have improved, suicidal ideations have decreased, and she has found healthy coping skills that work. Client reviewed coping skills she wants to continue using such as thought challenging, reading, taking baths, affirmat ions, and opposite action. Client will discharge later this week and will follow up with individual and group therapy at [facility]. Client recognizes that she can continue to work on self-compassion, self-care maintenance, and reinforcing healthy boundaries. Risks/Concerns:: Client denies any suicidal ideations, plan, or intent as of 03/30/21. Client shared she has not cut in a week and has not had any SI recently. Progress Toward Goals/Plan:: Client has responded well to IOP tx AEB her overall 87% reduction in symptoms as well as her self-report of improved mood stability. Client reports reduced isolation, rumination, and suicidal ideations. Client is also reporting increased application of coping skills and boundary setting. Client can benefit from two more IOP sessions to reinforce healthy coping skills, review aftercare plan, and further improve self-care. Time Stopped:: 12:25
--- NOTE | 2021-03-31 09:00 | BH.SGPN.GN ---
Behaviors/Verbalizations/Mental Status: [] Pt eye contact good, casually dressed, motor activity appropriate, speech normal rate and tone, mood euthymic, congruent affect, thoughts linear and intact, no evidence of delusions or hallucinations. Patient indicated no suicidal ideation, plan or intent on daily symptom tracker. Client Response/Progress/Benefit: []Patient receptive of session, engaged throughout AEB sharing thoughts and feelings with group. Identified emotion for the day as ?hopeful?, noting this is her last week in tx and she is excited but also nervous to be setting down. Client identified feeling more confident since establishing an aftercare plan with her outpatient providers. Discussed various skills she needs to continue to use to maintain gains moving forward. Expressed feeling she benefits most from consistent self-care, affirmations, and continuing to advocate for own mental health needs with her supports. Share writing a daily to-do list has aided in holding herself accountable to practice regular self-care. Patient to continue IOP to promote healthy change behaviors, continue to improve sx management, and prevent decompensation prior to discharge this Tuesday. Narrative Note: []
--- NOTE | 2021-03-31 10:20 | BH.SGPN.GN ---
Behaviors/Verbalizations/Mental Status: []Client alert and oriented, neatly dressed and groomed. Eye contact good. Motor activity appropriate. Speech within normal limits. Affect congruent, mood euthymic. Thoughts linear, logical, no evidence of hallucinations or delusions. Client Response/Progress/Benefit: []Client responded well to session, attentive and taking notes during discussion. Client worked cooperatively with the group to identify factors that contributed to how we define ourselves which included: upbringing, core beliefs, trauma, social media, past failures, and mental health. Group defined and discussed social and perceived stigma. Client nodded that she has experienced social and perceived stigma. Client was quiet during group, but she has been reporting less negative self-talk which indicates that client is working on combating perceived stigma. Client seemed to benefit from increased awareness of how mental health stigma can impact view of self. Will continue IOP tx to further improve mood stability and reinforce healthy coping skills. Narrative Note: []
--- NOTE | 2021-03-31 11:15 | BH.SGPN.GN ---
Behaviors/Verbalizations/Mental Status: []Client alert and oriented, casually dressed, hygiene appeared to be tended to. Eye contact fair. Motor activity appropriate. Speech within normal limits. Affect congruent, mood euthymic. Thoughts linear, logical, no signs of hallucinations or delusions. Client Response/Progress/Benefit: []Client engaged participant AEB pt providing input during discussion, taking notes and listened attentively to peers. Client worked with group to identify what mental stigma has prevented them from doing. Group brainstormed strategies to combat social and perceived stigma which included: educating others, no longer joking about mental illness , being open about mental health, self-compassion and not reinforcing stigma with behaviors or labels. Client stated she will attempt to decrease perceived stigma by opening up to people in her life about her mental health more openly. Seemed to benfit from increased awareness of strategies to combat mental health stigma. Will continue IOP tx to continue use of healthy coping, improve self-esteem and prevent decompensation. Narrative Note: []
--- NOTE | 2021-04-02 14:43 | BH.AFTERPLAN ---
Aftercare Plan - Demographics Treatment End Date:: 04/03/21 Psychiatrist:: Karma Wilson Psychiatrist Office #:: [phone] [facility] Therapist:: Emilee Abreu Therapist Phone #:: [phone] - Plan Details Progress/Aftercare Plan Details:: Patti has made significant strides since starting IOP as shown by her improved mood and functioning, ability to challenge distortions, and overall more positive outlook. When Patti started IOP, she was severely depressed to the point that she was isolating, not taking care of herself, and has suicidal thoughts. Patti had low energy, was passive towards supports, and had negative self-talk that reinforced depressive maintenance cycles. Now, Patti is actively using healthy coping skills, setting boundaries, challenging negative thoughts, and using self-care. Patti self-reports progress in the following areas: better insight, increased ability to challenge negative thoughts, being more open-minded, and feeling more in control of her emotions. Patti was active in both group and individual therapy sessions. Patti contributed to group discussions, offered emotional support to peers, and consistently followed through with her goals. In individual sessions, Patti was receptive to feedback, consistent with homework, and willing to push herself. Patti?s DSM-5 scores decreased overall by 87%, depression decreased by 75%, thoughts of hurting herself decreased by 75%, anxiety decreased by 86%, and not knowing what who she is or what she wants in life decreased by 100%. Patti will follow up with [facility] for outpatient counseling and medication management. Strategies for Success:: 1. Challenge those negative thoughts! Reminders: you can be making progress AND struggle, you can be kind and loving AND set boundaries, you are enough AND you can improve yourself. 2. Self-care such as taking baths, reading, and doing a face mask 3. Check in with yourself and take care of those emotions, don?t wait for them to take over you. 4. Boundaries!! Girl?. Keep up those boundaries. Remember boundaries teach others how to treat us. 5. Positive self-talk and affirmations. 6. Opposite action! Don?t let depression or anxiety make the decisions. 7. Maintenance! Keep up with what has worked. 8. Give yourself credit! You have seriously come so far. - Appointments Appointments/Referrals to Other Services:: 1. Follow up with your outpatient therapist, Violeta, and continue this on a weekly basis and also follow up with your social work case manager, Odalis. 2. Follow up with Griselda Nation at [facility] for medication management. 3. Follow up with the weekly group at [facility] for additional support and accountability. - Medications Home Medications: Home Medications fluvoxamine 150 mg PO DAILY 02/18/21 Trazodone Hcl 100 mg PO QHS 30 Days #30 tablet 03/04/21 bupropion HCl 150 mg PO BREAKFAST 30 Days #30 [id number].er.[id number] 03/04/21
--- NOTE | 2021-04-03 09:00 | BH.SGPN.GN ---
Behaviors/Verbalizations/Mental Status: [] Eye contact is good. Motor activity is appropriate. Appearance is casual. Speech is Appropriate. Mood is euthymic. Affect is flat. Thoughts are linear and logical. No evidence of psychosis. Reviewed daily check in sheet and no reports of suicidal ideations or intent. Client Response/Progress/Benefit: [] Pt participated when prompted. Attentive. Emotion for today is zazzed. Pt reports that today is her last day in [facility]. Shared mental health wins as consistently utilizing skills such as thought challenging, self-care (reading), and being more social with positive support. When I was depressed I avoided interactions ... even positive ones. Spent time with her friends this week. Reports that school is going well and she has appointments set for her aftercare. Progress noted per pt report. Progress noted per pt report. Benefited from group support and encouragement. Pt will be discharged from [facility] today. Narrative Note: []
--- NOTE | 2021-04-03 10:12 | BH.SGPN.GN ---
Behaviors/Verbalizations/Mental Status: []Client alert and oriented, casually dressed, hygiene appeared to be tended to. Eye contact fair. Motor activity appropriate. Speech within normal limits. Affect congruent. Mood euthymic. Thoughts linear, logical, no signs of hallucinations or delusions. Client Response/Progress/Benefit: []Client responded well to session, attentive and engaged throughout discussion and activity. Client worked with group to identify impacts of fearing failure. Assisted group with identifying how fear of failure can form which includes: past failures, family dynamics, comparing self to others, and high expectations. Client stated past failures can get her in the mindset taht I'm going to fail again. Client seemed to connect how failures can lead to positive changes. Client appeared to benefit from gaining awareness of the impact fear of failure can have on one?s mental health and wellbeing. Client has made significant treatment progress and no longer meets criteria for IOP level of care, will discharge today. Narrative Note: []
--- NOTE | 2021-04-03 11:12 | BH.SGPN.GN ---
Behaviors/Verbalizations/Mental Status: []Client alert and oriented, casually dressed and groomed. Eye contact good. Motor activity WNL. Speech within normal limits. Affect congruent, mood euthymic. Thoughts linear, logical, no signs of hallucinations or delusions. Client Response/Progress/Benefit: []Client responded well to session, engaged and actively participating throughout. Client completed the fear of failure worksheet and reported that fear of failure has kept client from growth in relationships, acceptance of self, and breaking unhealthy cycles. Client able to identify thoughts and behaviors that reinforce personal fear of failure which included: all or nothing thinking, past failures, fear of losing support, and avoidance. Client attentive during discussion of the different strategies to help overcome fear of failure. Identified wanting to work on continuing to uphold her boundaries and practicing self-compassion. Client appeared to benefit from learning ways to overcome fear of failure. Will discharge from IOP today as client has made significant progress and no longer meets criteria for IOP level of care. Narrative Note: []
--- NOTE | 2021-04-03 14:30 | BH.DS_ITS ---
Discharge Summary - Demographics Date of Admission:: 02/17/21 Discharge Date: 04/03/21 Presenting Problems at Admission:: Client is a 20-year-old female with a history of MDD and JUANITA. Client has history of three previous hospitalizations with the most recent being 01/2019. Client was referred to [facility] tx by her outpatient psychiatry resident due to worsening suicidal ideations and limited benefit from traditional counseling. Client has a long-standing history of SI with thoughts of methods. Denies any current plan or intent. At admission client endorsed poor sleep, poor appetite, low energy, low motivation, hopelessness, anhedonia, rumination, worry, and avoidant behaviors. Client also was using cutting to cope with mental health symptoms and stressors. Client's symptoms were significantly impacting her ability to function at home, socially, and at school. Discharge Diagnoses:: Major depressive disorder, recurrent, severe without psychosis F 33.2; generalized anxiety disorder; cluster B traits Reason for Discharge:: Client has accomplished her treatment goals AEB overall symptom reduction and self-report of applying healthy coping skills. Client no longer meets criteria for IOP tx and will transition to outpatient counseling. - Treatment Progress During Treatment & Response: Client responded well to treatment and made significant progress while in [facility]. Client?s overall symptoms decreased by 87% per the DSM-5. Client?s depression decreased by 86%, thoughts of hurting herself decreased by 75%, and anxiety decreased by 86%. Client was an active group member, had consistent attendance, and reported frequent application of coping skills. Client was receptive during individual sessions and followed through with homework. Client developed many healthy coping skills including boundary setting, opposite action, thought challenging, and self-care. Issues Still to be Addressed:: Client can continue to benefit from outpatient counseling to promote mood stability and gains made in IOP. Client can continue to work on setting healthy boundaries with family, challenging distorted thought patterns, and continuing to avoid unhealthy coping skills. Discharge Recommendations/Instructions:: Client will follow up with her outpatient providers at [facility] for medication management, therapy, and case management. Client sees V[facility] for individual counseling on a weekly basis and [facility] for medication management. Client was offered to participate in [facility] aftercare, but client declined and plans to participate in a once a week group at [facility]. Discharge Handout: Complete Discharge Handout with client on aftercare options and continuity of care.
== END 2021-04-03 13:44 | disposition home or self-care (01) ==
LOC: BHIOP 09:00
PROVIDERS: PCP Family Medicine; Referring Provider Psychiatry & Neurology Psychiatry; Visit Provider Psychiatry & Neurology Psychiatry
DX: F33.2 Major depressive disorder, recurrent severe without psychotic features (principal); F41.1 Generalized anxiety disorder; Z79.899 Other long term (current) drug therapy
CPT/HCPCS: H0035; 90832; 90834; 90853